=== PATIENT | male | born 1975 | race Caucasian/White ===

== ENCOUNTER → 2022-09-05 07:33 | Outpatient (BNVA) | payer OTHER, SELFPAY | PROVIDERS: Family Provider Physician Assistant Medical; Visit Provider Student in an Organized Health Care Education/Training Program | DX: S86.112A Strain of other muscle(s) and tendon(s) of posterior muscle group at lower leg level, left leg, initial encounter (principal); X58.XXXA Exposure to other specified factors, initial encounter; Y93.02 Activity, running | CPT/HCPCS: 73590 ==